=== PATIENT | male | born 1995 | race African-American/Black ===

== ENCOUNTER 2018-08-31 12:11 | Emergency (ER) | payer SELFPAY ==
[~2018-08-31] VITALS: Ht 188 cm; Wt 79.4 kg
[2018-08-31 12:16] VITALS: BP 128/84
[2018-08-31] MEDS ORDERED: NKM (12:18)
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
[2018-08-31] MEDS ORDERED: CYCLOBENZAPRINE10 MG ORAL (13:00)
[2018-08-31] MEDS ORDERED: NAPROXEN500 M2 ORAL (13:00)
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
[2018-08-31 13:20] VITALS: BP 105/93
--- NOTE | 2018-08-31 13:21 | NUR ---
ER DISCHARGE NOTE: Patient is cleared to be discharged per ERMD, pt is aox4, on room air, with stable vital signs. pt was given dc and prescription instructions, pt was able to verbalize understanding, pt id band removed. pt is able to ambulate with steady gait. pt took all belongings.
== END 2018-08-31 13:15 | disposition home or self-care (01) ==
LOC: EMR 12:25
DX: S13.9XXA Sprain of joints and ligaments of unspecified parts of neck, initial encounter (principal); S33.5XXA Sprain of ligaments of lumbar spine, initial encounter; V43.62XA Car passenger injured in collision with other type car in traffic accident, initial encounter; Y92.89 Other specified places as the place of occurrence of the external cause; R51 Headache; F17.200 Nicotine dependence, unspecified, uncomplicated
CPT/HCPCS: 99282